=== PATIENT | female | born 2000 | race Caucasian/White ===

== ENCOUNTER 2023-08-06 13:36 | Outpatient (CLI) | payer BC, OTHER | END 2023-08-06 13:37 | disposition home or self-care (01) | LOC: CSHULT 13:36 | PROVIDERS: ATTEND Psychiatry & Neurology Clinical Neurophysiology | DX: G40.814 Lennox-Gastaut syndrome, intractable, without status epilepticus (principal) | CPT/HCPCS: 93306 ==